=== PATIENT | female | born 1975 | race Caucasian/White ===

== ENCOUNTER → 2017-06-06 | Outpatient (CLI) | payer OTHER ==
--- NOTE | 2017-06-06 13:06 | KCIC ---
MRI right shoulder without contrast dated 06/06/2017 11:45 AM Indication: Right shoulder pain , recent injury , painful range of motion injury March 2017 Comparison: No comparison is available. Technique: Routine multiplanar multisequence imaging performed. No contrast administered. Findings: Bone marrow signal is homogeneous. No marrow edema. Suprascapular and spinoglenoid notches are clear. No significant muscle edema or muscle atrophy. Mild increased signal within the supraspinatus and infraspinatus portions of the rotator cuff. No full-thickness tear or retracted tear. Subscapularis is intact. Mild hypertrophic change of the AC joint. No significant undersurface spurring. Acromion type I morphology. Trace amount of subacromial/subdeltoid bursal fluid. Long head biceps tendon is intact. Extra articular portion courses within the bicipital groove. Biceps anchor is intact. Glenoid labrum is intact. No apparent labral tear or para labral cyst. No glenohumeral joint effusion or loose body. IMPRESSION: 1. Mild rotator cuff tendinopathy with no evidence of full-thickness tear. 2. Mild AC joint arthropathy. Electronically signed by: Ge Padilla MD (06/06/2017 1:02 PM) [id number]
== END | disposition home or self-care (01) ==
LOC: KCIC MRI 11:45
DX: S49.91XA Unspecified injury of right shoulder and upper arm, initial encounter (principal); M75.91 Shoulder lesion, unspecified, right shoulder; M12.811 Other specific arthropathies, not elsewhere classified, right shoulder; X58.XXXA Exposure to other specified factors, initial encounter; Y93.89 Activity, other specified; Y92.89 Other specified places as the place of occurrence of the external cause; Y99.8 Other external cause status
CPT/HCPCS: 73221